=== PATIENT | male | born 1980 | race Two or more races ===

== ENCOUNTER 2024-07-20 02:14 | Emergency (ER) | payer BC, SELFPAY ==
[2024-07-20 02:16] VITALS: BMI 24.1
[2024-07-20 02:36] VITALS: BP 121/72; PULSE 74; RESP 18; TEMP 36.7; O2SAT 98
--- NOTE | 2024-07-20 02:38 | PD.EDEXREM ---
ED Extremity Problem RME/HPI General Chief complaint: Extremity Problem,Nontraumatic Stated complaint: PAIN IN LEFT HIP RADIATES DOWN LEG Time Seen by Provider: 07/20/24 02:28 Arrival date/time: 07/20/24 02:14 43 [facility] with c/o of left leg pain for 3 days, denies any trauma/injury Denies new trauma No fevers No unexplained weight loss of night sweats No recent surgeries or recurrent bacterial infections No IVDU Patient is not immunocompromised Denies any new focal neurological deficits or new motor weakness Denies bowel or bladder incontinence or saddle anesthesia LOCATION: leg SEVERITY: Symptoms are described as being severe with limitations on activities of daily living QUALITY: Symptoms are described as being dull or achy CONTEXT: The patient is unable to identify any inciting events. DURATION/TIMING: The symptoms started approximately 3 day ago and have been constant this then. ASSOCIATED SYMPTOMS: The patient is unable to identify any other associated symptoms. MODIFYING FACTORS: The patient is unable to identify any alleviating or aggravating symptoms. PERTINENT ROS: no fevers, no IVDU, denies any ripping or tearing sensations, no associated abdominal pain, no focal neurological deficits and denies any saddle anesthesia, and no bowel or bladder incontinence REVIEW OF SYSTEMS: See History of Present Illness - with the exception of those mentioned in the history of present illness, all other systems reviewed and reported as negative GENERAL: In general the patient is awake, interactive, in an emergency department gurney. HEAD/EYES/EARS/NOSE/THROAT: normo-cephalic, atraumatic, mucus membranes are moist, anicteric, palpebral conjunctiva is pink, trachea is midline. CARDIOVASCULAR: regular rate and regular rhythm, no murmurs, heart sounds are not distant, strong pulses in all four extremities that are equal and symmetric bilateral upper and lower extremities, normal capillary refill. CHEST/PULMONARY: normal chest rise and fall, good air movement, clear to auscultation bilaterally, normal inspiratory to expiratory ratios without evidence of respiratory distress. NECK: No midline/Paraspinal tenderness, no step off ROM/Strenght intact No Kernig and bruzinski sign. No trauma ABDOMEN: soft, not tender, no masses appreciated BACK: normal range of motion without pain. NEUROLOGICAL: cranio-facial features are symmetric, moves all four extremities equally without obvious limitations or weakness. EXTREMITY: + left SLT no tenderness to palpation over the long bones or large joints of the bilateral upper and lower extremities, no joint swelling, no joint erythema, no signs of trauma, no unilateral leg swelling and no peripheral edema. gait limping noted. SKIN: warm, dry, well-perfused, no jaundice, no rash, no telangiectasias or petechia. PSYCH: calm, cooperative, no evidence of psychosis or agitation Related Data Previous Rx's ?Medication ?Instructions ?Recorded acetaminophen 650 mg 650 mg PO Q8H PRN fever or pain 08/03/19 tablet,extended release #30 tabs ibuprofen 600 mg tablet 600 mg PO Q8H PRN fever or pain 08/03/19 #30 tabs albuterol sulfate 90 mcg/actuation 2 puff inhalation QID PRN 10/19/20 aerosol inhaler (ProAir HFA) shortness of breath or wheezing #18 grams azithromycin 250 mg tablet See Rx Instructions PO .COMPLEX #6 10/19/20 (Zithromax Z-Tez) tabs dexamethasone 6 mg tablet 6 mg PO QDAY #10 tabs 10/19/20 (Decadron) cyclobenzaprine 7.5 mg tablet 7.5 mg PO TID PRN muscle spasm #20 07/20/24 tabs methylprednisolone 4 mg tablets in 4 mg PO .as directed #21 tabs 07/20/24 a dose pack (Medrol (Tez)) naproxen 500 mg tablet (Naprosyn) 500 mg PO BID PRN pain #30 tabs 07/20/24 Allergies Allergy/AdvReac Type Severity Reaction Status Date / Time No Known Allergies Allergy Verified 08/03/19 15:00 Course Course Course Narrative: Low suspicion for acute cord compression or cauda equina at this time, given presentation and symptoms, including epidural abscess or hematoma. Patient has no history of malignancy, active or distant history. ?Patient has no unexplained weight loss. No recent fevers, rigors, malaise, or recent infection. ?No history of IVDU or skin-popping. ?Patient does not have any history concerning for saddle anesthesia/perianal sensory loss or complaining of decreased rectal tone. Patient does not have urinary retention or inability to control urine from overflow. ?Patient has no tenderness overlying spinous process. Patient has no focal weakness on examination. rx: medro dose tez, naproxen and flexeril Given exam and history, low suspicion for cord compression, cauda equina, epidural abscess/hematoma. Distally neurovascuarly intact. Query likely musculoskeletal component versus sciatica. Discussed pain control, physical therapy and follow up with PMD. Cautious return precautions discussed w/ full understanding Quality Measures none Orders Category Date Time Status CYCLObenzaPRINE [Flexeril] Med 07/20/24 02:37 Discontinued 5 mg PO X1 ONE Ketorolac Inj [Toradol Inj] Med 07/20/24 02:37 Discontinued 30 mg IM X1 ONE predniSONE Med 07/20/24 02:37 Discontinued 60 mg PO X1 ONE Reevaluation(s) Reevaluation #1: feel better Vital Signs Vital signs: Vital Signs Temperature 98.0 F 07/20/24 02:36 Pulse Rate 74 07/20/24 02:36 Respiratory Rate 18 07/20/24 02:36 Blood Pressure 121/72 07/20/24 02:36 Pulse Oximetry (%) 98 07/20/24 02:36 Oxygen Delivery Method Room Air 07/20/24 02:36 Extremity Problem Patient data External records reviewed:: None Clinical information provided by:: patient Social determinants that could affect healthcare access:: none Patient has the following chronic illnesses:: none How is presenting disease/condition affected by chronic disease/condition?: no chronic disease Evaluation data The following diagnostics were reviewed and interpreted by me:: other (specify) (none ) Lab and/or radiology exams considered but not ordered:: none Interpretation Summary: none Medications / Prescriptions Medications or Prescriptions considered but not ordered:: none Medication administrations:: Medication Administration History Discontinued Medications Cyclobenzaprine HCl (Cyclobenzaprine 5 Mg Tablet) 5 mg PO X1 ONE Stop: 07/20/24 02:38 Last Admin: 07/20/24 02:49 Dose: 5 mg Documented By: LAYLA Ketorolac Tromethamine (Ketorolac Inj 60 Mg/2 Ml Vial) 30 mg IM X1 ONE Stop: 07/20/24 02:38 Last Admin: 07/20/24 02:49 Dose: 30 mg Documented By: LAYLA Prednisone (Prednisone 20 Mg Tablet) 60 mg PO X1 ONE Stop: 07/20/24 02:38 Last Admin: 07/20/24 02:49 Dose: 60 mg Documented By: LAYLA as state above Consultations Consultation(s) initiated? (list below): No Diagnosis Extremity Problem Differential Diagnosis: other (sciatica, muscle strain, back pain) Most likely diagnosis given after review of the tests above:: sciatica Admission Indicated Admission indicated?: not indicated Admission Request Was there a request for admission?: No Disposition Plan Disposition Plan: Discharge Discharge Attestation Discharge Attestation: The patient and all family members were given an opportunity to ask questions and understood the discharge instructions. Discharge instructions specifically effects, indications for sooner follow up or return to the emergency department, and the expected course of current diagnosis. Patient condition: Stable Discharge Plan Plan Patient Disposition: HOME (Self Care) Prescriptions/Referrals Prescriptions/Med Rec: New methylprednisolone [Medrol (Tez)] 4 mg tablets,dose pack 4 mg PO .as directed Qty: 21 0RF cyclobenzaprine 7.5 mg tablet 7.5 mg PO TID PRN (Reason: muscle spasm) Qty: 20 0RF naproxen [Naprosyn] 500 mg tablet 500 mg PO BID PRN (Reason: pain) Qty: 30 0RF No Action acetaminophen 650 mg tablet extended release 650 mg PO Q8H PRN (Reason: fever or pain) Qty: 30 0RF Rx Instructions: swallow whole; do not crush, chew, break, dissolve, cut, or open ibuprofen 600 mg tablet 600 mg PO Q8H PRN (Reason: fever or pain) Qty: 30 0RF Rx Instructions: prn pain / fever azithromycin [Zithromax Z-Tez] 250 mg tablet See Rx Instructions .ROUTE .COMPLEX Qty: 6 0RF Rx Instructions: take 500 mg today (day 1), then 250 mg for 4 days (days 2-5) dexamethasone [Decadron] 6 mg tablet 6 mg PO QDAY Qty: 10 0RF albuterol sulfate [ProAir HFA] 90 mcg/actuation HFA aerosol inhaler 2 puff inhalation QID PRN (Reason: shortness of breath or wheezing) Qty: 18 0RF Problem List Clinical Impression: Sciatica Patient/Caregiver Discharge Instructions Education Materials: ED Sciatica Print Language: Guatemalan Stand Alone Forms: [employer] Award Info., Patient Portal Info Letter
[2024-07-20] MEDS: KETOROLAC INJ 60 MG/2 ML VIAL 30 MG IM (02:49)
[2024-07-20] MEDS: predniSONE 20 MG TABLET 60 MG PO (02:49)
[2024-07-20] MEDS: CYCLObenzaPRINE 5 MG TABLET PO (02:49)
[2024-07-20 03:41] VITALS: BP 118/72; PULSE 80; RESP 16; TEMP 36.7; O2SAT 98
== END 2024-07-20 03:41 | disposition home or self-care (01) ==
PROVIDERS: Emergency Provider Emergency Medicine; PCP Family Medicine
DX: M54.32 Sciatica, left side (principal)
CPT/HCPCS: 96372; 99283; J1885; J7512; A9270

== ENCOUNTER 2025-02-19 16:48 | Emergency (ER) | payer BC, SELFPAY ==
[2025-02-19 16:56] VITALS: BP 138/80; PULSE 77; RESP 18; TEMP 36.9; O2SAT 96; BMI 29.6
--- NOTE | 2025-02-19 17:34 | XR_ITS ---
Examination: Humerus 2 views right Technique: Humerus, AP lateral 2 views Date and time of exam: February 19, 2025 1745 hours INDICATIONS: Injury to the arm 4 days ago with arm pain FINDINGS: No shoulder fracture or dislocation Shaft of the humerus is intact IMPRESSION: Negative for fracture
--- NOTE | 2025-02-19 17:34 | XR_ITS ---
Examination: Shoulder,right, 3 views Technique: Shoulder AP internal rotation, AP external rotation, Y view shoulder, 3 views Exam date and time :February 19, 2025 1743 hours INDICATIONS: Reduction of the shoulder 4 days ago, shoulder pain. FINDINGS: No shoulder fracture or dislocation. No AC joint separation IMPRESSION: No shoulder fracture or dislocation
--- NOTE | 2025-02-19 17:42 | PD.EDUPEX ---
Upper Extremity Injury RME/HPI General Chief Complaint: Extremity Injury, Upper Stated Complaint: Right Shoulder Pain Time Seen by Provider: 02/19/25 17:03 Source: patient Arrival date/time: 02/19/25 16:48 This is a 44 y male here with right bicep pain. Reports was lifting heavy weight and heard a pop three days ago. No meds prior ed visit. Limitations: no limitations Related Data Previous Rx's ?Medication ?Instructions ?Recorded acetaminophen 650 mg 650 mg PO Q8H PRN fever or pain 08/03/19 tablet,extended release #30 tabs ibuprofen 600 mg tablet 600 mg PO Q8H PRN fever or pain 08/03/19 #30 tabs albuterol sulfate 90 mcg/actuation 2 puff inhalation QID PRN 10/19/20 aerosol inhaler (ProAir HFA) shortness of breath or wheezing #18 grams azithromycin 250 mg tablet See Rx Instructions PO .COMPLEX #6 10/19/20 (Zithromax Z-Tez) tabs dexamethasone 6 mg tablet 6 mg PO QDAY #10 tabs 10/19/20 (Decadron) cyclobenzaprine 7.5 mg tablet 7.5 mg PO TID PRN muscle spasm #20 07/20/24 tabs methylprednisolone 4 mg tablets in 4 mg PO .as directed #21 tabs 07/20/24 a dose pack (Medrol (Tez)) naproxen 500 mg tablet (Naprosyn) 500 mg PO BID PRN pain #30 tabs 07/20/24 Allergies Allergy/AdvReac Type Severity Reaction Status Date / Time No Known Allergies Allergy Verified 08/03/19 15:00 Review of Systems Review of Systems Systems Reviewed: All systems reviewed, normal except as documented Narrative Review of Systems: Gen: No fever, no chills, no weight loss EYES: No discharge, no visual changes, no pain HEENT: No ear pain, no congestion, no sore throat PULM: No shortness of breath, no cough, no congestion CV: No chest pain, no dyspnea on exertion, no palpitations GI: No nausea, no vomiting, no diarrhea, no pain, no constipation : No frequency, no urgency,? no dysuria Musc/skel: No joint pain, no back pain Skin: No rash? ED Exam General Limitations: Present no limitations General appearance: Present alert and in no apparent distress Head Head exam: Present atraumatic Eye Eye exam: Present normal appearance, PERRL and EOMI ENT ENT exam: Present normal exam, normal oropharynx and mucous membranes moist Neck Neck exam: Present normal inspection, full ROM and trachea midline Chest Chest inspection: Present normal inspection and symmetric chest wall rise Respiratory Respiratory exam: Present normal lung sounds bilaterally Cardiovascular Cardiovascular exam: Present regular rate, normal rhythm and normal heart sounds Abdominal Exam Abdominal exam: Present soft and normal bowel sounds Extremities Exam Extremities exam: Present normal inspection and full ROM Back Exam Back exam: Present normal inspection and full ROM Neurological Exam Neurological exam: Present alert, oriented X3 and CN II-XII intact Psychiatric Psychiatric exam: Present normal affect and normal mood Skin Skin exam: Present warm, dry, intact and normal color Course Quality Measures none Orders Category Date Time Status XR humerus RT min 2V Stat Exams 02/19/25 17:34 Completed XR shoulder RT min 2V Stat Exams 02/19/25 17:34 Completed Vital Signs Vital signs: Vital Signs Temperature 98.4 F 02/19/25 16:56 Pulse Rate 77 02/19/25 16:56 Respiratory Rate 18 02/19/25 16:56 Blood Pressure 138/80 H 02/19/25 16:56 Pulse Oximetry (%) 96 02/19/25 16:56 Oxygen Delivery Method Room Air 02/19/25 16:56 Extremity Injury MDM Narrative MDM Narrative:: Most likely muscle strain negative x-rays. Advised to follow with PCP for MRI or further evaluation. Patient data External records reviewed:: [facility] previous records Clinical information provided by:: patient Social determinants that could affect healthcare access:: none Patient has the following chronic illnesses:: no How is presenting disease/condition affected by chronic disease/condition?: no chronic disease Evaluation data The following diagnostics were reviewed and interpreted by me:: radiology exam(s) Lab and/or radiology exams considered but not ordered:: yes Interpretation Summary: Examination: Humerus 2 views right Technique: Humerus, AP lateral 2 views Date and time of exam: February 19, 2025 1745 hours INDICATIONS: Injury to the arm 4 days ago with arm pain FINDINGS: No shoulder fracture or dislocation Shaft of the humerus is intact IMPRESSION: Negative for fracture Examination: Shoulder,right, 3 views Technique: Shoulder AP internal rotation, AP external rotation, Y view shoulder, 3 views Exam date and time :February 19, 2025 1743 hours INDICATIONS: Reduction of the shoulder 4 days ago, shoulder pain. FINDINGS: No shoulder fracture or dislocation. No AC joint separation IMPRESSION: No shoulder fracture or dislocation Medications / Prescriptions Medications or Prescriptions considered but not ordered:: no Medication administrations:: no Consultations Consultation(s) initiated? (list below): No Diagnosis Upper Extremity Injury Differential Diagnosis: sprain and strain of wrist, fracture of wrist, finger sprain, dislocation of finger, fracture of humerus and fracture of clavicle Most likely diagnosis given after review of the tests above:: muscle strain Admission Indicated Admission indicated?: not indicated Admission Request Was there a request for admission?: No Disposition Plan Disposition Plan: Discharge Discharge Attestation Discharge Attestation: The patient and all family members were given an opportunity to ask questions and understood the discharge instructions. Discharge instructions specifically effects, indications for sooner follow up or return to the emergency department, and the expected course of current diagnosis. Patient condition: Stable Discharge Plan Plan Patient Disposition: HOME (Self Care) Patient condition on transfer: Stable Prescriptions/Referrals Prescriptions/Med Rec: No Action acetaminophen 650 mg tablet extended release 650 mg PO Q8H PRN (Reason: fever or pain) Qty: 30 0RF Rx Instructions: swallow whole; do not crush, chew, break, dissolve, cut, or open ibuprofen 600 mg tablet 600 mg PO Q8H PRN (Reason: fever or pain) Qty: 30 0RF Rx Instructions: prn pain / fever azithromycin [Zithromax Z-Tez] 250 mg tablet See Rx Instructions .ROUTE .COMPLEX Qty: 6 0RF Rx Instructions: take 500 mg today (day 1), then 250 mg for 4 days (days 2-5) dexamethasone [Decadron] 6 mg tablet 6 mg PO QDAY Qty: 10 0RF albuterol sulfate [ProAir HFA] 90 mcg/actuation HFA aerosol inhaler 2 puff inhalation QID PRN (Reason: shortness of breath or wheezing) Qty: 18 0RF methylprednisolone [Medrol (Tez)] 4 mg tablets,dose pack 4 mg PO .as directed Qty: 21 0RF cyclobenzaprine 7.5 mg tablet 7.5 mg PO TID PRN (Reason: muscle spasm) Qty: 20 0RF naproxen [Naprosyn] 500 mg tablet 500 mg PO BID PRN (Reason: pain) Qty: 30 0RF Referrals: No Primary/Family,Physician [Primary Care Provider] - In 1 week Problem List Clinical Impression: Biceps muscle strain Patient/Caregiver Discharge Instructions Discharge Activity: activity as tolerated Education Materials: ED Muscle Strain, Extremity Additional Instructions: - Is very important that you do not lift or crawl any weight with that right arm for a couple days. - There is no fractures of the upper arm. Can continue to take ibuprofen or Tylenol for pain. Use arm sling for the next 4 days. Make an appointment with your primary doctor for follow-up and further excused from work. You might need additional imaging in the outpatient basis. Please return to the emergency department there is any worsening symptoms urgent condition. Print Language: Tajik Stand Alone Forms: [employer] Award Info., Work/School Release, Patient Portal Info Letter PA/DIRECTOR COMMERCIAL SALES Supervising Physician PA/DIRECTOR COMMERCIAL SALES Supervising Physician: [email or web address]
[2025-02-19 18:30] VITALS: BP 132/73; PULSE 74; RESP 19; TEMP 36.9; O2SAT 96
== END 2025-02-19 18:45 | disposition home or self-care (01) ==
PROVIDERS: Emergency Provider Family Medicine
DX: S46.911A Strain of unspecified muscle, fascia and tendon at shoulder and upper arm level, right arm, initial encounter (principal); X50.0XXA Overexertion from strenuous movement or load, initial encounter
CPT/HCPCS: 73030; 73060; 99283

== ENCOUNTER → 2025-03-12 | Outpatient (CLI) | payer BC, SELFPAY ==
--- NOTE | 2025-03-12 14:00 | XR_ITS ---
MRI shoulder, right, without contrast. Date and time: March 12, 2025, 1444 hours INDICATIONS: Lifting injury February 15, 2025, patient heard a pop in the shoulder followed by shoulder pain and weakness in the right arm 3 weeks Technique: Multiple axial, sagittal and coronal sections of the shoulder have been obtained. Siemens high-resolution 1.5 Pushpa MRI scanner is utilized. Axial fat-suppressed sections, TR 2350, TE 18 T2-weighted coronal fat-saturated images, TR 3500, TE 7100 T1-weighted coronal images, TR 500, TE 15 T2-weighted sagittal fat-saturated images, TR 3500, TE 57 T1-weighted sagittal sections, TR 504, TE 13. Findings: Supraspinatus tendon insertion is intact. Infraspinatus tendon insertion is intact. Subscapularis insertion is intact Subscapularis bursa is evident. Long head of the biceps is not in the bicipital groove Complete tear of the biceps superior labral anchor is seen. Retraction of the musculotendinous junction of the rotator cuff is not seen . Tendinosis pattern is mild Distance between the acromium and humeral head is 6 mm Atrophy of the supraspinatus muscle is not seen. Atrophy of the infraspinatus muscle is not seen. Sagittal sections demonstrate a horizontal acromion. Acromioclavicular joint demonstrates mild osteoarthritis . Osacromiale is not identified. Anterior labral tears. Bony glenoid fossa on the sagittal sections does not demonstrate osseous defect. Occult fracture or area of avascular necrosis is not seen. Acromioclavicular joint separation is not visible. Defect in the posterolateral margin of the humeral head is not seen Impression: Rotator cuff intact Complete tear of the biceps superior labral anchor Long head of the biceps is not in the bicipital groove Anterior labral tears Also consider MRI of the elbow follow-up to exclude tear of the insertion of the long head of the biceps into the radial tuberosity as clinically warranted
== END | disposition home or self-care (01) ==
LOC: SMRI 13:30
PROVIDERS: PCP Family Medicine; Referring Provider Family Medicine; Visit Provider Family Medicine
DX: S46.211A Strain of muscle, fascia and tendon of other parts of biceps, right arm, initial encounter (principal); S43.431A Superior glenoid labrum lesion of right shoulder, initial encounter; X58.XXXA Exposure to other specified factors, initial encounter
CPT/HCPCS: 73221

== ENCOUNTER → 2025-03-16 | Outpatient (CLI) | payer BC, SELFPAY ==
--- NOTE | 2025-03-16 15:15 | XR_ITS ---
Examination: MRI right humerus, without contrast Date and time of exam: March 16, 2025 1554 hours INDICATIONS: Lifting weights, February 15, 2025, patient felt pop in the arm followed by shoulder pain weakness in the right arm Technique: Multiple axial sagittal and coronal images of the right humerus have been obtained with the Siemens high-resolution 1.5 Pushpa MRI scanner. Images obtained include T2-weighted fat-suppressed sagittal sections, TR 3500, TE 46, T2 weighted coronal fat suppressed images, TR 3050, TE 84, T2-weighted transverse fat suppressed images, TR 3260, TE 63, proton density transverse images, TR 4720 TE 46, and T1 weighted coronal images, TR 560, TE 13. Findings: Complete tear of the biceps tendon, retracted with surrounding hemorrhage in the anterior forearm, axial images 13 through 19 Humerus itself is intact The distal portion of the long head of the biceps is intact inserting into the radial tuberosity IMPRESSION: Complete tear of the biceps tendon
== END | disposition home or self-care (01) ==
LOC: SMRI 14:56
PROVIDERS: PCP Internal Medicine; Referring Provider Family Medicine; Visit Provider Internal Medicine
DX: S46.211A Strain of muscle, fascia and tendon of other parts of biceps, right arm, initial encounter (principal); W19.XXXA Unspecified fall, initial encounter
CPT/HCPCS: 73218